=== PATIENT | female | born 1985 | race Caucasian/White ===

== ENCOUNTER 2020-03-01 11:48 | Emergency (ER) | payer BC ==
[2020-03-01] MEDS ORDERED: SODIUM CHLORIDE 0.9% (FLUSH) 10 ML SYG IV PRN (12:02)
--- NOTE | 2020-03-01 12:03 | ED.PDOC ---
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 Soaking pads every 30 minutes. Denies chest pain, shortness of breath, dizziness. Ob sent her for evaluation. Allergies/Adverse Reactions: Allergies NO KNOWN ALLERGY Allergy (Verified 03/01/20 12:04) Review of Systems - Review of Systems Constitutional: Denies: chills, fever EENTM: Denies: blurred vision, double vision Respiratory: Denies: cough, short of breath Cardiology: Denies: chest pain, palpitations, syncope Gastrointestinal/Abdominal: Denies: abdominal pain, nausea, vomiting Genitourinary: States: see HPI Musculoskeletal: Denies: back pain Neurological: Denies: headache, numbness Endocrine: Denies: unexplained weight loss Hematologic/Lymphatic: Denies: easy bleeding, easy bruising Family Medical History - Family History Mother Family History: Unknown Physical Exam - Physical Exam General Appearance: Alert, Comfortable, No apparent distress, Well Developed, Well Groomed, Well Hydrated, Well Nourished Eyes, Ears, Nose, Throat Exam: PERRL/EOMI, normal ENT inspection Neck: non-tender, full range of motion, supple, normal inspection Cardiovascular/Respiratory: regular rate, rhythm, no M/R/G, normal peripheral pulses, no JVD, normal breath sounds, no respiratory distress Gastrointestinal/Abdominal: normal bowel sounds, non tender, soft, no organomegaly, no pulsatile mass Rectal Exam: deferred Pelvic Exam: external exam normal, speculum exam normal, bimanual exam normal, no cerv. motion tender, no masses, blood - no active bleeding, one clot noted. 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, no motor/sensory deficits, alert, normal mood/affect, oriented x 3 Skin Exam: normal color, warm/dry Progress - Progress Progress: 03/01/20 12:47 Laboratory Results WBC 6.5 K/mm3 (4.8-10.8) 03/01/20 12:10 RBC 4.38 M/mm3 (4.20-5.40) 03/01/20 12:10 Hgb 12.7 gm/dL (12.0-16.0) 03/01/20 12:10 Hct 38.3 % (36.0-47.0) 03/01/20 12:10 MCV 87.4 fl (81.0-99.0) 03/01/20 12:10 MCH 29.1 pg (27.0-31.0) 03/01/20 12:10 MCHC 33.3 g/dL (33.0-37.0) 03/01/20 12:10 RDW 12.7 % (11.5-14.5) 03/01/20 12:10 Plt Count 213 K/mm3 (130-400) 03/01/20 12:10 MPV 9.1 fl (7.40-10.4) 03/01/20 12:10 Absolute Neuts (auto) 4.60 K/uL (1.8-6.8) 03/01/20 12:10 Absolute Lymphs (auto) 1.40 K/uL (1.0-3.4) 03/01/20 12:10 Absolute Monos (auto) 0.40 K/uL (0.2-0.8) 03/01/20 12:10 Absolute Eos (auto) 0.10 K/uL (0.0-0.4) 03/01/20 12:10 Absolute Basos (auto) 0.00 K/uL (0.0-0.1) 03/01/20 12:10 Neutrophils % 71.2 % (42.0-78.0) 03/01/20 12:10 Lymphocytes % 21.3 % (20.0-50.0) 03/01/20 12:10 Monocytes % 5.7 % (2.0-9.0) 03/01/20 12:10 Eosinophils % 1.5 % (1.0-5.0) 03/01/20 12:10 Basophils % 0.3 % (0.0-2.0) 03/01/20 12:10 PT 9.8 SECONDS (9.0-10.9) 03/01/20 12:10 INR < 1.00 (0.9-1.15) 03/01/20 12:10 PTT (SP) 25.0 SECONDS (21.8-31.6) 03/01/20 12:10 Serum HCG, Qual Negative (NEGATIVE) 03/01/20 12:10 Urine Color Yellow (Yellow) 03/01/20 12:18 Urine Appearance Clear (Clear) 03/01/20 12:18 Urine pH 7.0 (4.5-7.8) 03/01/20 12:18 Ur Specific [place] 1.015 (1.005-1.030) 03/01/20 12:18 Urine Protein Negative mg/dL 03/01/20 12:18 Urine Glucose (UA) Negative mg/dL (Negative) 03/01/20 12:18 Urine Ketones Negative mg/dL (NEGATIVE) 03/01/20 12:18 Urine Blood Moderate (Negative) H 03/01/20 12:18 Urine Nitrite Negative 03/01/20 12:18 Urine Bilirubin Negative (NEGATIVE) 03/01/20 12:18 Urine Urobilinogen 0.2 mg/dL (0.2-1.0) 03/01/20 12:18 Ur Leukocyte Esterase Negative (Negative) 03/01/20 12:18 Urine RBC 3-5 /hpf H 03/01/20 12:18 Urine WBC 0 /hpf 03/01/20 12:18 Ur Epithelial Cells 1-3 /hpf 03/01/20 12:18 Urine Bacteria 0 03/01/20 12:18 Departure - Departure Clinical Impression: Menorrhagia Qualifiers: Menorrhagia type: with regular cycle Qualified Code(s): N92.0 - Excessive and frequent menstruation with regular cycle Time of Disposition: 12:37 Disposition: Discharge to Home or Self Care Departure Forms: ED Discharge - Pt. Copy, Patient Portal Self Enrollment Instructions: Heavy Periods (DC), Bleeding Between Periods Diet: resume usual diet Activity: increase activity as tolerated Referrals: Jessica Rae MD [Primary Care Provider] - 1-5 Days
[2020-03-01 12:48] VITALS: BP 130/93; TEMP 97.6; O2SAT 98
== END 2020-03-01 12:48 | disposition home or self-care (01) ==
LOC: ER 11:48
DX: N92.0 Excessive and frequent menstruation with regular cycle (principal)